=== PATIENT | female | born 2000 | race Caucasian/White ===

== ENCOUNTER 2022-06-06 15:36 | Emergency (ER) | payer BC ==
[2022-06-06] MEDS ORDERED: Ondansetron PF 4 MG/2 ML Vial ONE (15:55)
[2022-06-06] MEDS ORDERED: Diazepam 10 MG/2 ML SYRINGE ONE (16:08)
[2022-06-06 17:59] LABS: #Eosinphils 0.1 thou/uL (0.0-0.7); #Lymphocytes 1.8 thou/uL (1.20-3.40); #Monocytes 0.4 thou/uL (0.11-0.59); #Neutrophils 5.7 thou/uL (1.40-6.50); %Basophils 0.2 % (0.0-1.0); %Eosinophils 0.7 % (0.0-10.0); %Lymphocytes 22.3 % (28.0-48.0); %Monocytes 5.5 % (0.0-4.0); %Neutrophils 71.2 % (31.0-61.0); Mean Corpuscular HGB CONC 34.7 g/dL (32.0-36.0); Mean Corpuscular Hemoglobin 33.4 pg (25.0-35.0); Mean Corpuscular Volume 96.5 fl (78.0-98.0); Mean Platelet Volume 8.5 fL (7.4-10.4); Platelet Count 235 10x3/uL (130-400); RBC Distribution Width 11.8 % (11.5-14.5)
[2022-06-06 18:02] LABS: BHCG - Serum Negative (NEGATIVE); Pregs Control Background? CLEAR/WHITE (CLR/WHITE); Pregs Control Bar Appear? YES (CONTROL BAR)
[2022-06-06 18:05] LABS: Anion Gap 15 mmol/L (10-20); BUN (Urea Nitrogen) 9 mg/dL (7.0-18.7); Calc. Creatinine Clearance 0 mL/min (70-130); Calcium 9.3 mg/dL (7.8-10.44); Carbon Dioxide 21 mmol/L (22-29); Chloride 107 mmol/L (98-107); Estimated GFR 131; Glucose 72 mg/dL (70-105); Potassium 4.5 mmol/L (3.5-5.1); Sodium 138 mmol/L (136-145)
[2022-06-06] MEDS ORDERED: Meclizine HCl 25 MG TAB ONE (18:30)
== END 2022-06-06 20:14 | disposition home or self-care (01) ==
LOC: ERS 15:36
DX: R42 Dizziness and giddiness (principal); R11.10 Vomiting, unspecified
CPT/HCPCS: 80048; 84703; 85025; 93005; 96361; 96374; 96375; J2405; J3360

== ENCOUNTER 2022-12-08 14:25 | Emergency (ER) | payer BC | END 2022-12-08 17:20 | disposition home or self-care (01) | LOC: ERS 14:25 | DX: K60.2 Anal fissure, unspecified (principal); R10.9 Unspecified abdominal pain ==

== ENCOUNTER 2023-01-19 15:13 | Emergency (ER) | payer BC ==
[2023-01-19 15:49] LABS: #Basophils 0.1 thou/uL (0.0-0.2); #Eosinphils 0.1 thou/uL (0.0-0.7); #Monocytes 0.7 thou/uL (0.11-0.59); #Neutrophils 6.7 thou/uL (1.40-6.50); %Basophils 0.5 % (0.0-1.0); %Eosinophils 0.9 % (0.0-10.0); %Lymphocytes 27.5 % (21.0-51.0); %Monocytes 6.4 % (0.0-10.0); %Neutrophils 64.5 % (42.0-75.0); Hematocrit 42.5 % (36.0-47.0); Hemoglobin 14.3 g/dL (12.0-16.0); Mean Corpuscular HGB CONC 33.6 g/dL (32.0-36.0); Mean Corpuscular Hemoglobin 32.5 pg (27.0-31.0); Mean Corpuscular Volume 96.6 fl (78.0-98.0); Mean Platelet Volume 9.1 fL (7.4-10.4); Platelet Count 373 10x3/uL (130-400); RBC Distribution Width 12.1 % (11.5-14.5); White Blood Cell (WBC) Count 10.3 10x3/uL (4.8-10.8)
[2023-01-19 16:18] LABS: Troponin I Less than 0.010 ng/mL (< 0.028)
[2023-01-19 16:19] LABS: ALT (SGPT) 30 U/L (8-55); AST (SGOT) 24 U/L (5-34); Albumin 5.3 g/dL (3.5-5.0); Alkaline Phosphatase 80 U/L (40-110); Anion Gap 17 mmol/L (10-20); BUN (Urea Nitrogen) 9 mg/dL (7.0-18.7); Bilirubin, Total 0.2 mg/dL (0.2-1.2); Calc. Creatinine Clearance 0 mL/min (70-130); Calcium 10.6 mg/dL (7.8-10.44); Carbon Dioxide 23 mmol/L (22-29); Chloride 107 mmol/L (98-107); Estimated GFR 127; Globulin 2.8 g/dL (2.4-3.5); Glucose 82 mg/dL (70-105); Potassium 4.9 mmol/L (3.5-5.1); Protein, Total 8.1 g/dL (6.0-8.3); Sodium 142 mmol/L (136-145)
== END 2023-01-19 18:12 | disposition home or self-care (01) ==
LOC: ERS 15:13
DX: R07.89 Other chest pain (principal)
CPT/HCPCS: 36415; 71045; 80053; 83880; 84484; 85025; 85379; 93005